=== PATIENT | male | born 1955 | race Caucasian/White ===

== ENCOUNTER 2018-11-01 23:18 | Emergency (ER) | payer MEDICARE, BC ==
[~2018-11-01] VITALS: Ht 180.3 cm; Wt 74.8 kg
[2018-11-02] MEDS ORDERED: NAPROXEN500 M1 ORAL (00:41)
--- NOTE | 2018-11-02 00:41 | Emergency Room Report ---
History of Present Illness General Chief Complaint: Lower Extremity Injury Source: Patient Present Illness HPI Is a 63-year-old male with history of testicular cancer status post admission. He presents with chief complaint of right knee pain. He said about weeks ago he was intoxicated and fell onto his his knee. Initially swell up a little bit. Now is just tender mostly anteriorly and laterally. Worse when he walks up the steps. He felt extremely give out. Did not fall. No nausea no vomiting. No fever chills. Pain is 7 out of 10. No other injury. Allergies: Coded Allergies: PENICILLINS (Verified Allergy, Unknown, 11/01/18) Patient History Past Medical History: see triage record, old chart reviewed Past Surgical History: other Pertinent Family History: none Social History: Denies: smoking Immunizations: other Reviewed Nursing Documentation: PMH: Agreed; PSxH: Agreed Nursing Documentation-PMH Past Medical History: No History, Except For Hx Cancer: Yes - testicular cancer, stage 4 melanoma Review of Systems Eye: Denies: eye pain, blurred vision ENT: Denies: ear pain, nose congestion, throat swelling Respiratory: Denies: cough, shortness of breath Cardiovascular: Denies: chest pain, palpitations Gastrointestinal: Denies: abdominal pain, diarrhea, nausea, vomiting Musculoskeletal: Reports: joint pain; Denies: back pain Skin: Denies: rash Neurological: Denies: headache, numbness Endocrine: Denies: increased thirst, increased urine Hematologic/Lymphatic: Denies: easy bruising All Other Systems: negative except mentioned in HPI Physical Exam Vital Signs Date Time Temp Pulse Resp B/P (MAP) Pulse Ox O2 Delivery O2 Flow Rate FiO2 11/01/18 23:24 97.9 85 16 147/84 94 Room Air vitals unremarkable Sp02 EP Interpretation: reviewed, normal General Appearance: well appearing, no apparent distress, alert Head: normocephalic, atraumatic Eyes: bilateral eye PERRL, bilateral eye EOMI ENT: hearing grossly normal, normal pharynx Neck: full range of motion, supple, no meningismus Respiratory: chest non-tender, lungs clear, normal breath sounds Cardiovascular #1: regular rate, rhythm, no murmur Gastrointestinal: normal bowel sounds, non tender, no mass, no organomegaly, no bruit, non-distended Musculoskeletal: back normal, gait/station normal, normal range of motion, tender - Tenderness to the anterior and lateral aspect the Right kneee Psychiatric: mood/affect normal Skin: warm/dry Medical Decision Making Diagnostic Impression: Primary Impression: Sprain of right knee Qualified Codes: S83.91XA - Sprain of unspecified site of right knee, initial encounter ER Course Patient with knee sprain. No fracture dislocation. Knee is stable. We'll discharge home. Other X-Ray Diagnostic Results Other X-Ray Diagnostic Results : X-Ray ordered: Right knee x-rays # of Views/Limited Vs Complete: 3 View Indication: Pain EP Interpretation: Yes Interpretation: no dislocation, no soft tissue swelling, no fractures, other - bone cyst on prox tibia Impression: No acute disease Electronically Signed by: Sandip Robert MD Last Vital Signs Date Time Temp Pulse Resp B/P (MAP) Pulse Ox O2 Delivery O2 Flow Rate FiO2 11/01/18 23:24 97.9 85 16 147/84 94 Room Air Status: improved Disposition: HOME, SELF-CARE Condition: Scripts Naproxen* (NAPROXEN*) 500 Mg Tablet. 500 MG ORAL TWICE A DAY, #30 TAB Prov: Sandip Robert MD 11/02/18 Patient Instructions: Knee Sprain Additional Instructions: Follow-up with your doctor in 7 days. You may need an MRI if symptoms don't improve. Return if symptom worsen. Sandip Robert MD Nov 02, 2018 00:41
[2018-11-02 00:58] VITALS: BP 147/84
--- NOTE | 2018-11-02 13:47 | Diagnostic Imaging Report ---
Indication: Pain Knee pain/trauma 3 views of the right knee were obtained. Findings: Small, slightly lobulated subcortical lucencies demonstrated within the proximal tibia both on the lateral and medial side. These are well marginated with the rim calcification and sharp zone of transition and are likely benign and incidental. Bones are osteopenic. Joint space is normal. No acute fracture identified. No definite joint effusion identified. Some calcification of the quadriceps tendon noted. Arterial calcification also present within the popliteal artery. IMPRESSION: No acute injury appreciated. Multiple incidental findings as above
== END 2018-11-02 01:00 | disposition home or self-care (01) ==
LOC: EMR 11-02 00:30
DX: S83.91XA Sprain of unspecified site of right knee, initial encounter (principal); W19.XXXA Unspecified fall, initial encounter; Y92.9 Unspecified place or not applicable; Y99.9 Unspecified external cause status; Z88.0 Allergy status to penicillin; Z85.47 Personal history of malignant neoplasm of testis; Z85.820 Personal history of malignant melanoma of skin
CPT/HCPCS: 99283